=== PATIENT | male | born 1970 | race Hispanic/Latino ===

== ENCOUNTER 2021-05-05 19:05 | Emergency (ER) | payer OTHER ==
[2021-05-05] MEDS ORDERED: Boostrix 0.5 ML (Tdap) VIAL ONE (19:45)
[2021-05-05] MEDS ORDERED: Lidocaine 1% w/Epinephrine 1:100K 20 ML VIAL ONE (19:46)
[2021-05-05] MEDS ORDERED: Lidocaine 1% (PF) 30 ML VIAL ONE (19:47)
[2021-05-05] MEDS ORDERED: Bacitracin 1 PK ONE (20:16)
== END 2021-05-05 20:41 | disposition home or self-care (01) ==
LOC: NAV ERS 19:05
DX: S61.215A Laceration without foreign body of left ring finger without damage to nail, initial encounter (principal); E11.9 Type 2 diabetes mellitus without complications; Z87.891 Personal history of nicotine dependence; Z79.84 Long term (current) use of oral hypoglycemic drugs; W26.0XXA Contact with knife, initial encounter; Y92.009 Unspecified place in unspecified non-institutional (private) residence as the place of occurrence of the external cause
CPT/HCPCS: 12001; 90471; 90715; J2001

== ENCOUNTER 2022-10-31 10:32 | Emergency (ER) | payer BC, OTHER ==
[2022-10-31] MEDS ORDERED: Acetaminophen 500 MG TAB ONE (10:49)
[2022-10-31 11:16] LABS: Bilirubin Negative (Negative); Blood, Urine Negative (Negative); Clarity Clear (Clear); Glucose, Urine (Dipstick) >=1000 mg/dL (Negative); Ketone, Urine Negative (Negative); Leukocyte Negative (Negative); Nitrite Negative (Negative); Protein, Urine (Dipstick) Negative (Neg-Trace)
[2022-10-31] MEDS ORDERED: Azithromycin 250 MG TAB ONE ×2 (11:58)
[2022-10-31 12:02] LABS: SARS-CoV-2 NAA Rapid Test Not Detected (NotDetected)
== END 2022-10-31 12:05 | disposition home or self-care (01) ==
LOC: NAV ERS 10:32
DX: R50.9 Fever, unspecified (principal); R05.9 Cough, unspecified; R52 Pain, unspecified; E11.9 Type 2 diabetes mellitus without complications; Z20.822 Contact with and (suspected) exposure to COVID-19; Z87.891 Personal history of nicotine dependence; Z79.84 Long term (current) use of oral hypoglycemic drugs
CPT/HCPCS: 71045; 81003; 87081; 87430; 87804